=== PATIENT | female | born 1990 | race Two or more races ===

== ENCOUNTER 2025-08-25 09:41 | Emergency (ER) | payer OTHER ==
[~2025-08-25] VITALS: Ht 170.2 cm; Wt 72.1 kg
[2025-08-25 09:47] VITALS: BP 109/78; O2SAT 98
[2025-08-25] MEDS ORDERED: KETOROLAC TROMETHAMINE 30 MG VIAL IM ONE (12:00)
[2025-08-25] MEDS ORDERED: DEXAMETHASONE SODIUM PHOSPHATE 4 MG/ML VIAL IM ONE (12:00)
[2025-08-25] MEDS ORDERED: CEFTRIAXONE SODIUM 1,000 MG VIAL IM ONE (12:00)
[2025-08-25] MEDS ORDERED: DEXAMETHASONE SODIUM PHOSPHATE 4 MG/ML VIAL ONE (12:22)
[2025-08-25] MEDS ORDERED: KETOROLAC TROMETHAMINE 30 MG VIAL ONE (12:22)
[2025-08-25] MEDS ORDERED: LIDOCAINE HCL 1% 10ML VIAL ONE (12:22)
[2025-08-25] MEDS ORDERED: CEFTRIAXONE SODIUM 1,000 MG VIAL ONE (12:23)
[2025-08-25 13:03] LABS: BASO % 0.5 % (0.1-1.2); EOS # 0.26 (0.04-0.54); EOS % 3.3 % (0.7-7.0); LYMPH # 2.08 (1.18-3.74); LYMPH % 26.6 % (19.3-53.1); MEAN PLATELET VOLUME 9.80 fl (9.4-12.4); MONO # 0.31 (0.24-0.82); MONO % 4.0 % (4.7-12.5); NEUT # 5.11 (1.56-6.13); NEUT % 65.3 % (34.0-71.1); RED CELL DISTRIBUTION WIDTH 11.5 % (11.6-14.4)
[2025-08-25 13:06] LABS: ERYTHROCYTE SEDIMENTATION RATE 3 mm/hr (0-20)
[2025-08-25 13:27] LABS: BUN CREA RATIO 21.0 (7.0-25.0); CREATININE SERUM 0.63 mg/dL (0.55-1.02); GFR 106.33; GLUCOSE FASTING 92.0 mg/dL (65-100); OSMOLALITY SERUM 283.0 MOSM/KG (275-295)
[2025-08-25] MEDS ORDERED: KETO10TA2 PO (13:31)
[2025-08-25] MEDS ORDERED: AMOX-CLAV 875-1 EACH PO (13:31)
[2025-08-25] MEDS ORDERED: PEPCID AC20 MG PO (13:31)
[2025-08-25] MEDS ORDERED: INTESTINEX680 M1 PO (13:31)
== END 2025-08-25 13:50 | disposition home or self-care (01) ==
LOC: ER 09:41
PROVIDERS: Student in an Organized Health Care Education/Training Program
DX: L02.31 Cutaneous abscess of buttock (principal)